=== PATIENT | male | born 1965 | race Two or more races ===

== ENCOUNTER 2023-01-07 07:50 | Emergency (ER) | payer SELFPAY ==
[2023-01-07 07:54] VITALS: BP 129/93; PULSE 64; RESP 18; TEMP 36.8; O2SAT 98
--- NOTE | 2023-01-07 08:15 | DI.RAD_ITS ---
Exam(s) XR KNEE LT 3V AP,LAT,LORENZO EXAM: XR KNEE LT 3V AP,LAT,LORENZO CLINICAL HISTORY: knee pain. TECHNIQUE: 2D digital imaging was performed of the left knee. Three images were obtained. AP, late ral and PA tunnel views were obtained. COMPARISON: No exams were available for comparison FINDINGS: BONES: No acute fracture is present. No bony destructive lesion is seen. JOINTS: The knee is normally aligned. There is a moderate joint effusion. There is mild spurring of the posterior patella. The joint spaces are otherwise well maintained. SOFT TISSUE: Normal. IMPRESSION: 1. Moderate joint effusion. 2. Mild degenerative changes of the knee. DATA REPOSITORY: RADIATION DOSE DELIVERED:
[2023-01-07] MEDS: Acetaminophen 325 MG TAB (08:35)
[2023-01-07] MEDS: Ibuprofen 600 MG TAB (08:36)
--- NOTE | 2023-01-07 09:13 | W.ED.GENAD ---
Discharge Plan Disposition Patient Disposition: Home Discharge Details Clinical Impression: Internal derangement of knee, Effusion of knee Primary Care Provider: Mireille,Local ED Provider: Monica Barrios Home Meds and New Rx's Prescriptions: New diclofenac sodium 1 % gel 2 g topical QID Qty: 100 0RF Rx Instructions: apply to single elbow, wrist or hand; for hand includes palm/fingers/back of hand ibuprofen [Motrin IB] 200 mg tablet 600 mg PO Q6H PRNQty: 30 0RF acetaminophen [Tylenol Arthritis Pain] 650 mg tablet extended release 650 mg PO Q8H PRNQty: 90 0RF Discharge Instructions Additional Instructions: Apply Voltaren gel topically for pain Take Tylenol as needed for discomfort Take ibuprofen 600 mg every 8 hours with food Keep your knee brace in place Weightbearing as tolerated Use crutches to allow your knee to rest My recommendation is that you follow-up with orthopedist in the outpatient setting as you likely have damaged the ligaments or meniscus in your knee Stand Alone Forms: Work Release Referrals: Mansoor Pang MD [ [facility] STAFF PHYSICIAN] - Medical Decision Making Patient is a 57-year-old male who presents after traumatic twisting injury to his knee with large visible knee effusion, x-ray was ordered for further evaluation, x-ray shows evidence of large effusion, no obvious fracture, this is per radiology interpretation and my review Placed in a hinged knee brace and crutches and referred to orthopedics We will apply Voltaren gel and take ibuprofen and Tylenol as needed for pain Work restrictions provided Return precautions reviewed and patient expressed understanding HPI General Date/Time Provider Initiated Documentation: 01/07/23 08:14. HPI Narrative: This 57-year-old male presents with left knee pain and swelling for the past 2 weeks. He denies any fever or chills. He states that he jumped off a pair of stilts for drywalling and thinks that is when he injured his knee as he had immediate pain and difficulty walking. He states that he presents today secondary to persistent and worsening pain since that episode. He states that his knee is also quite swollen. He denies any additional injuries, specifically no head injury. He denies any hip pain or left ankle pain. Pain is exacerbated with flexion and extension of his knee. Italian speaking patient predominantly so language line was utilized throughout the entirety of this encounter Related Data Home Medications Medication Instructions Recorded Confirmed acetaminophen 650 mg 650 mg PO Q8H PRN #90 tabs 01/07/23 tablet,extended release (Tylenol Arthritis Pain) diclofenac sodium 1 % topical gel 2 g topical QID #100 grams 01/07/23 ibuprofen 200 mg tablet (Motrin IB) 600 mg PO Q6H PRN #30 tabs 01/07/23 Previous Rx's Medication Instructions Recorded acetaminophen 650 mg 650 mg PO Q8H PRN #90 tabs 01/07/23 tablet,extended release (Tylenol Arthritis Pain) diclofenac sodium 1 % topical gel 2 g topical QID #100 grams 01/07/23 ibuprofen 200 mg tablet (Motrin IB) 600 mg PO Q6H PRN #30 tabs 01/07/23 Allergies Allergy/AdvReac Type Severity Reaction Status Date / Time No Known Allergies Allergy Unverified 01/07/23 08:05 General Stated Complaint: Orthopedic KATIE: 4 PFSH All Active Problems (Updated 01/07/23 @ 09:16 by JOSE ANTONIO Valentine) Internal derangement of knee (Acute) Effusion of knee (Acute) Social History Smoking risk assessment performed?: No Drug use: Never Substance use type: does not use Do you feel safe at home: Yes Do you feel safe in your relationship?: Yes Course Vital Signs Vital signs: Vital Signs Temperature 36.8 C 01/07/23 07:54 Pulse 64 01/07/23 07:54 Respiratory Rate 18 01/07/23 07:54 Blood Pressure 129/93 H 01/07/23 07:54 Pulse Oximetry 98 01/07/23 07:54 Temperature 36.8 C 01/07/23 07:54 Temperature Source Oral 01/07/23 07:54 Pulse 64 01/07/23 07:54 Respiratory Rate 18 01/07/23 07:54 Respiratory Effort Normal 01/07/23 08:06 Blood Pressure 129/93 H 01/07/23 07:54 Blood Pressure Position Sitting 01/07/23 07:54 Pulse Oximetry 98 01/07/23 07:54 Oxygen Delivery Method Room Air 01/07/23 07:54 Oxygen Flow Rate 0 01/07/23 07:54 Pain Level 10 01/07/23 08:09
== END 2023-01-07 09:28 | disposition home or self-care (01) ==
PROVIDERS: Emergency Provider Physician Assistant
DX: M25.462 Effusion, left knee (principal); M23.92 Unspecified internal derangement of left knee
CPT/HCPCS: 29505; 73562; 99283